=== PATIENT | male | born 2000 | race Caucasian/White ===

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

== ENCOUNTER 2021-01-12 03:30 | Outpatient (CLI) | payer MEDICAID, SELFPAY ==
[2021-01-12 08:08] LABS: ALT 32 U/L (16-63); AST 17 U/L (15-37); Albumin 4.5 g/dL (3.4-5.0); Alkaline Phosphatase 69 U/L (46-116); Anion Gap 7.3 mmol/L (3-11); BUN 19 mg/dL (7-18); Bilirubin, Total 0.6 mg/dL (0.2-1.0); CO2 29.7 mmol/L (21.0-32.0); CREATININE 0.9 mg/dL (0.70-1.30); Calcium 9.3 mg/dL (8.5-10.1); Chloride 106 mmol/L (98-107); Glucose 86 mg/dL (74-106); Magnesium 2.1 mg/dL (1.8-2.4); PHOSPHORUS 4.7 mg/dL (2.6-4.7); Potassium 4.6 mmol/L (3.5-5.1); Sodium 143 mmol/L (136-145); Total Protein 7.5 g/dL (6.4-8.2)
[2021-01-13 01:37] LABS: Vitamin D 25 Total 32.7 ng/mL (30-100)
[2021-01-17 11:35] LABS: IgA 192 mg/dL (85-499); Interpretation (See Note); Tissue Transglutaminase IgA <1.2 U/mL (<4.0)
== END 2021-01-12 03:31 | disposition home or self-care (01) ==
LOC: LBO 03:30
PROVIDERS: PCP Pediatrics; Visit Provider Pediatrics
DX: E55.9 Vitamin D deficiency, unspecified (principal); E83.39 Other disorders of phosphorus metabolism; R63.4 Abnormal weight loss
CPT/HCPCS: 36415; 80053; 82306; 82784; 83516; 83735; 84100

== ENCOUNTER 2021-10-07 11:31 | Outpatient (CLI) | payer MEDICAID, SELFPAY ==
[2021-10-07 12:05] LABS: ESR < 1 mm/hr (0-15)
[2021-10-07 12:06] LABS: Abs Immature Grans 0.03 10^3/uL (0.0-0.06); Absolute Basophil Count 0.05 10^3/uL (0.0-0.2); Absolute Eosinophil Count 0.29 10^3/uL (0.0-0.7); Absolute Lymphocyte Count 1.73 10^3/uL (1.2-3.4); Absolute Monocyte Count 0.57 10^3/uL (0.1-0.8); Absolute Neutrophil Count 5.94 10^3/uL (1.2-6.7); Basophils % 0.6; Eosinophils % 3.4; HCT 45.4 % (40.0-50.0); HGB 15.4 g/dL (13.5-17.5); Immature Grans % 0.3; Lymphocytes % 20.1; MCH 29.8 pg (27.0-33.0); MCHC 33.9 % (32.0-36.0); MCV 88 fL (80-95); MPV 11.7 fL (8.0-11.0); Monocytes % 6.6; Platelet Count 196 10^3/uL (130-400); RBC 5.16 10^6/uL (4.36-5.78); RDW 12.4 % (11.8-14.1); RDW-SD 40.4 fL; WBC 8.61 10^3/uL (4.4-10.8)
[2021-10-07 12:47] LABS: ALT 27 U/L (16-63); AST 9 U/L (15-37); Albumin 4.8 g/dL (3.4-5.0); Alkaline Phosphatase 62 U/L (46-116); Anion Gap 8.7 mmol/L (3-11); BUN 15 mg/dL (7-18); Bilirubin, Total 0.5 mg/dL (0.2-1.0); CO2 27.3 mmol/L (21.0-32.0); CREATININE 0.8 mg/dL (0.70-1.30); Calcium 9.4 mg/dL (8.5-10.1); Chloride 104 mmol/L (98-107); Glucose 89 mg/dL (74-106); Magnesium 1.8 mg/dL (1.8-2.4); Potassium 4.8 mmol/L (3.5-5.1); Sodium 140 mmol/L (136-145); TSH (W/Ref FT4) 0.82 uIU/mL (0.52-4.13); Total Protein 8.2 g/dL (6.4-8.2)
[2021-10-07 13:11] LABS: Vitamin D 25 Total 28.4 ng/mL (30-100)
== END 2021-10-07 11:32 | disposition home or self-care (01) ==
LOC: LBO 11:31
PROVIDERS: PCP Pediatrics; Visit Provider Pediatrics
DX: R10.9 Unspecified abdominal pain (principal); R11.10 Vomiting, unspecified; E55.9 Vitamin D deficiency, unspecified
CPT/HCPCS: 36415; 80053; 82306; 85652; 83735; 84100; 84443; 85025

== ENCOUNTER 2021-11-10 11:44 | Emergency (ER) | payer MEDICAID, SELFPAY ==
[2021-11-10 11:53] VITALS: BP 121/78; PULSE 84; RESP 16; TEMP 35.8; O2SAT 99
== END 2021-11-10 14:43 | disposition left before discharge ==
LOC: ER 12:08
PROVIDERS: PCP Pediatrics
DX: Z53.21 Procedure and treatment not carried out due to patient leaving prior to being seen by health care provider (principal)

== ENCOUNTER 2022-09-07 14:46 | Emergency (ER) | payer SELFPAY ==
[2022-09-07 14:53] VITALS: BP 104/62; PULSE 71; RESP 15; TEMP 36.5; O2SAT 100
--- NOTE | 2022-09-07 15:59 | NUR.NOTE ---
Nursing Note: [id number] patient stated to Access that he was leaving and going to [place].
== END 2022-09-07 15:59 | disposition left against medical advice (07) ==
PROVIDERS: PCP Pediatrics
DX: Z53.21 Procedure and treatment not carried out due to patient leaving prior to being seen by health care provider (principal)